=== PATIENT | female | born 1975 | race Caucasian/White ===

== ENCOUNTER 2017-09-14 09:21 | Emergency (ER) | payer OTHER ==
[~2017-09-14] VITALS: Ht 162.6 cm; Wt 54.7 kg
[2017-09-14 09:23] VITALS: TEMP 36.7; Ht 162.6 cm; Wt 54.7 kg
[2017-09-14] MEDS ORDERED: CHOL1000 PO (09:45)
[2017-09-14] MEDS ORDERED: PRENTAB26 PO (09:45)
[2017-09-14] MEDS ORDERED: FOLI1TAB7 PO (09:45)
[2017-09-14] MEDS ORDERED: LAMO200T38 PO (09:45)
[2017-09-14 10:04] LABS: BASO % 0.3 %; BASO ABS # 0.02 K/uL (0-0.2); COMPLETE YES; EOS % 1.8 %; HEMATOCRIT 35.3 % (37-47); IG% 0.3 %; LYMPH % 30.5 %; LYMPH ABS # 2.23 K/uL (1.2-3.4); MEAN CELL VOLUME 91.5 fL (80-100); MEAN CORPUSCULAR HEMOGLOBIN 31.9 pg (25-34); MEAN CORPUSCULAR HGB CONC 34.8 g/dl (32-36); MONO % 8.4 %; NEUT % 58.7 %; PLATELET COUNT 219 K/uL (130-400); RED BLOOD COUNT 3.86 M/uL (4.2-5.4)
[2017-09-14 10:15] LABS: PROTHROMBIN TIME (PATIENT) 10.2 SECONDS (9.0-12.0)
--- NOTE | 2017-09-14 10:18 | EMERGENCY ROOM VISIT NOTE ---
History Report prepared by Adrianna: Karely De La Torre Under the Supervision of: Dr. Howard Salinas M.D. First contact with patient: 09:32 Chief Complaint: ED VAG BLEEDING Stated Complaint: SPOTTING WHILE -11 WKS. History of Present Illness The patient is a 42 year old white female with a past medical history of two miscarriages, 1 elective and 1 ectopic who presents to the ED with a cc of intermittent vaginal bleeding beginning last evening. Positive nausea, vomiting. Negative recent sexual intercourse, trauma. The patient states that she is currently 11 weeks , confirmed via ultrasound. She states that she recently had a pap smear, noting that she had noticed dark blood with wiping. The patient states that her has been closely monitored due to her history of miscarriages and ectopic . Source of History: patient Onset: last evening Position: other (vaginal) Quality: other (bleeding) Timing: intermittent Associated Symptoms: + nausea, + vomiting Review of Systems See HPI for pertinent positives and negatives. A total of ten systems were reviewed and were otherwise negative. Past Medical & Surgical Medical Problems: (1) Ectopic (2) Elective (3) Miscarriage Family History No pertinent family history stated Social History Smoking Status: Former Smoker Marital Status: Housing Status: lives with significant other Occupation Status: employed Current/Historical Medications Scheduled Cholecalciferol (Vitamin D3), 1,000 INTER.UNIT PO DAILY Folic Acid (Folvite), 4 MG PO QPM Lamotrigine (Lamictal), 200 MG PO QPM Multivit/Min/Iron/Fol Ac/Pren ( Vitamin), 1 TAB PO QPM Allergies Coded Allergies: No Known Allergies (Unverified , 09/14/17) Physical Exam Vital Signs Date Time Temp Pulse Resp B/P (MAP) Pulse Ox O2 Delivery O2 Flow Rate FiO2 09/14/17 11:26 83 18 93/51 98 Room Air 09/14/17 09:23 36.7 87 18 104/57 97 Room Air Physical Exam GENERAL: Awake, alert, well-appearing, NAD HENT: Normocephalic, atraumatic. EYES: Normal conjunctiva. Sclera non-icteric. NECK: Supple. No nuchal rigidity. FROM. RESPIRATORY: CTAB, no rhonchi, wheezing, crackles CARDIAC: RRR, no MRG ABDOMEN: Soft, Gravid uterus palpated below umbilicus, NTND, BS+ MSK: No chest wall TTP, no LE edema NEURO: GCS 15, CN 2-12 intact, moves all 4s on command SKIN: No rash or jaundice noted. Medical Decision & Procedures ER Provider Diagnostic Interpretation: Radiology results as stated below per my review and radiologist interpretation: LIMITED (US) CLINICAL HISTORY: 11 weeks . Vaginal spotting. COMPARISON STUDY: No previous studies for comparison. TECHNIQUE: Transabdominal sonography of the pelvis was performed. FINDINGS: Single viable intrauterine gestation is noted. heart rate is normal at 166 bpm. Please note that a dedicated anatomical survey was not performed. [place]-rump length measured 4.58 cm which corresponds to an estimated gestational age of 11 weeks and 3 days. Note was made of a small hypoechoic focus within the placenta that measured 1.5 cm. There is no evidence of placenta previa. The right ovary was normal. Several left ovarian cysts were noted. Color flow is identified within each ovary. IMPRESSION: 1. Single viable intrauterine gestation with normal heart rate of 166 bpm. [place]-rump length of 4.58 cm which corresponds to an estimated gestational age of 11 weeks and 3 days. 2. Small 1.5 cm hypoechoic focus within the placenta. This is nonspecific and can be assessed with short-term follow-up ultrasound. 3. Several left ovarian cysts. Electronically signed by: Frank George M.D. 09/14/2017 11:04 AM Dictated Date/Time: 09/14/2017 10:48 AM Laboratory Results 09/14/17 09:55 Red Blood Count 3.86, Mean Corpuscular Volume 91.5, Mean Corpuscular Hemoglobin 31.9, Mean Corpuscular Hemoglobin Concent 34.8, Mean Platelet Volume 10.0, Neutrophils (%) (Auto) 58.7, Lymphocytes (%) (Auto) 30.5, Monocytes (%) (Auto) 8.4, Eosinophils (%) (Auto) 1.8, Basophils (%) (Auto) 0.3, Neutrophils # (Auto) 4.29, Lymphocytes # (Auto) 2.23, Monocytes # (Auto) 0.61, Eosinophils # (Auto) 0.13, Basophils # (Auto) 0.02 09/14/17 09:55 Test 09/14/17 09:55 White Blood Count 7.30 K/uL (4.8-10.8) Red Blood Count 3.86 M/uL (4.2-5.4) Hemoglobin 12.3 g/dL (12.0-16.0) Hematocrit 35.3 % (37-47) Mean Corpuscular Volume 91.5 fL (80-100) Mean Corpuscular Hemoglobin 31.9 pg (25-34) Mean Corpuscular Hemoglobin Concent 34.8 g/dl (32-36) Platelet Count 219 K/uL (130-400) Mean Platelet Volume 10.0 fL (7.4-10.4) Neutrophils (%) (Auto) 58.7 % Lymphocytes (%) (Auto) 30.5 % Monocytes (%) (Auto) 8.4 % Eosinophils (%) (Auto) 1.8 % Basophils (%) (Auto) 0.3 % Neutrophils # (Auto) 4.29 K/uL (1.4-6.5) Lymphocytes # (Auto) 2.23 K/uL (1.2-3.4) Monocytes # (Auto) 0.61 K/uL (0.11-0.59) Eosinophils # (Auto) 0.13 K/uL (0-0.5) Basophils # (Auto) 0.02 K/uL (0-0.2) RDW Standard Deviation 40.7 fL (36.4-46.3) RDW Coefficient of Variation 12.1 % (11.5-14.5) Immature Granulocyte % (Auto) 0.3 % Immature Granulocyte # (Auto) 0.02 K/uL (0.00-0.02) Prothrombin Time 10.2 SECONDS (9.0-12.0) Prothromb Time International Ratio 1.0 (0.9-1.1) Activated Partial Thromboplast Time 25.4 SECONDS (21.0-31.0) Partial Thromboplastin Ratio 1.0 Anion Gap 7.0 mmol/L (3-11) Est Creatinine Clear Calc Drug Dose 115.3 ml/min Estimated GFR () 135.2 Estimated GFR (Non- 116.6 BUN/Creatinine Ratio 14.2 (10-20) Calcium Level 8.7 mg/dl (8.5-10.1) Total Bilirubin 0.3 mg/dl (0.2-1) Aspartate Amino Transf (AST/SGOT) 10 U/L (15-37) Alanine Aminotransferase (ALT/SGPT) 13 U/L (12-78) Alkaline Phosphatase 59 U/L (45-117) Total Protein 6.9 gm/dl (6.4-8.2) Albumin 3.3 gm/dl (3.4-5.0) Globulin 3.6 gm/dl (2.5-4.0) Albumin/Globulin Ratio 0.9 (0.9-2) Human Chorionic Gonadotropin, Quant 02924 mIU/mL Laboratory results reviewed by me ED Course 1008: The patient was evaluated in room B6. A complete history and physical exam was performed. 1120: I reevaluated the patient and she is resting comfortably. I discussed the exam findings with her and I discussed the treatment plan. She verbalized complete understanding and agreement. She is ready for discharge. Medical Decision Differential diagnosis: Etiologies such as ectopic , dysfunction uterine bleeding, bleeding dyscrasia, trauma, infection, as well as others were entertained. The patient is a 42 year old white female with a past medical history of two miscarriages, 1 elective and 1 ectopic who presents to the ED with a cc of intermittent vaginal bleeding beginning last evening. Patient was seen and evaluated at the bedside. Patient is a 42-year-old who presents with some vaginal spotting. Patient states that she is 11 weeks 2 days by dates. Patient is not from the area and is appeared just for the . Patient has had some spotting when she wipes of the last 2 days. Patient denies any prior history of thrombophilia as does not take any blood thinning medications. Patient denies any recent sexual intercourse. She denies any vaginal trauma. On exam patient is very well- appearing and she is a fairly soft abdomen and uterus is palpated below her umbilicus. Patient does have 1 prior history of an ectopic . Patient does not have any any abdominal pain. She does complain of some occasional nausea and vomiting associated with but not currently. Patient did have blood work that was completed along with a ultrasound. Patient's blood work was fairly unremarkable. Patient had normal hemoglobin as well as platelet counts. Patient had no coagulopathy seen in her cognition studies. Patient did have a ultrasound that showed a single intrauterine at 11 weeks and 3 days. heart rate was 166. Patient was told to keep an eye on spotting and that if it progressed or got worse or she encountered severe abdominal pain and leakage of fluid she should seek other emergency medical for CLINICAL PHLEBOTOMIST attention. Patient is in agreement with the plan and all questions were answered. Patient was given strict follow-up, discharge, and return precautions. Patient was deemed suitable for outpatient follow-up at this time. Patient agreed with the plan of care and was safely discharged home. Medication Reconcilliation Current Medication List: was personally reviewed by me Impression Primary Impression: First trimester bleeding Scribe Attestation The scribe's documentation has been prepared under my direction and personally reviewed by me in its entirety. I confirm that the note above accurately reflects all work, treatment, procedures, and medical decision making performed by me. Departure Information Dispostion Home / Self-Care Referrals No Doctor, Assigned (PCP) Forms HOME CARE DOCUMENTATION FORM, IMPORTANT VISIT INFORMATION, WORK / SCHOOL INSTRUCTIONS Patient Instructions ED Bleed Irregular Vaginal, [facility] Additional Instructions Please return to the emergency department if you have worsening or recurrent symptoms not amenable to at-home treatment. Please call for a follow-up appointment with her primary care physician. Please take your medications as prescribed. If you have other concerns and/or complaints please feel free to also call your primary care physician's office or return the ED for further evaluation, management, and treatment. Take your medications as prescribed. Please continue taking her vitamins. Please avoid things like NSAIDs or aspirin. Please follow the instructions under the advisement of your CLINICAL PHLEBOTOMIST and fertility specialist. You have been examined and treated today on an emergency basis only. This is not a substitute for, or an effort to provide, complete comprehensive medical care. It is impossible to recognize and treat all injuries or illnesses in a single emergency department visit. It is therefore important that you follow up closely with [facility], your PCP, and/or your specialist(s). Call as soon as possible for an appointment. Thank you for your time and consideration. I look forward to speaking with you again soon. Please don't hesitate to call us if you have any questions.
[2017-09-14 10:26] LABS: BUN/CREATININE RATIO 14.2 (10-20); CALCIUM 8.7 mg/dl (8.5-10.1); CREATININE 0.56 mg/dl (0.60-1.20); POTASSIUM 3.5 mmol/L (3.5-5.1)
[2017-09-14 10:28] LABS: ALB/GLOB RATIO 0.9 (0.9-2)
--- NOTE | 2017-09-14 11:05 | DIAGNOSTIC IMAGING REPORT ---
LIMITED (US) CLINICAL HISTORY: 11 weeks . Vaginal spotting. COMPARISON STUDY: No previous studies for comparison. TECHNIQUE: Transabdominal sonography of the pelvis was performed. FINDINGS: Single viable intrauterine gestation is noted. heart rate is normal at 166 bpm. Please note that a dedicated anatomical survey was not performed. [place]-rump length measured 4.58 cm which corresponds to an estimated gestational age of 11 weeks and 3 days. Note was made of a small hypoechoic focus within the placenta that measured 1.5 cm. There is no evidence of placenta previa. The right ovary was normal. Several left ovarian cysts were noted. Color flow is identified within each ovary. IMPRESSION: 1. Single viable intrauterine gestation with normal heart rate of 166 bpm. [place]-rump length of 4.58 cm which corresponds to an estimated gestational age of 11 weeks and 3 days. 2. Small 1.5 cm hypoechoic focus within the placenta. This is nonspecific and can be assessed with short-term follow-up ultrasound. 3. Several left ovarian cysts. Electronically signed by: Frank George M.D. 09/14/2017 11:04 AM Dictated Date/Time: 09/14/2017 10:48 AM
[2017-09-14 11:26] VITALS: BP 93/51; PULSE 83; O2SAT 98
== END 2017-09-14 11:35 | disposition home or self-care (01) ==
LOC: C.EDB 09:23
DX: O20.8 Other hemorrhage in early pregnancy (principal); Z3A.11 11 weeks gestation of pregnancy; Z87.891 Personal history of nicotine dependence